=== PATIENT | female | born 1940 | race Hispanic/Latino ===

== ENCOUNTER 2018-10-06 09:47 | Inpatient (IN) | payer OTHER ==
--- OUTSIDE RECORDS SUMMARY | 2018-10-06 09:49 | XMS REPORT ---
:1940 Author Organization eClinicalWorks Care Team Providers Name Role Phone Bird, Na Provider Role Unavailable Allergies No Known Allergies Problems Problem Type Condition Code Onset Dates Condition Status Problem Anemia D64.9 Active Problem Diabetes E11.9 Active Problem Benign essential HTN I10 Active Problem Controlled type 2 diabetes mellitus E11.51 Active with diabetic peripheral angiopathy without gangrene, without long-term current use of insulin Problem CKD (chronic kidney disease) stage N18.3 Active 3, GFR 30-59 ml/min Problem Muscle cramps R25.2 Active Problem Essential hypertension I10 Active Problem Hyperlipidemia E78.5 Active Problem 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
--- OUTSIDE RECORDS SUMMARY | 2018-10-06 09:49 | XMS REPORT ---
:1940 Author Organization [employer] Care Team Providers Name Role Phone Bird, Na Provider Role Unavailable Allergies, Adverse Reactions, Alerts Substance Reaction Event Type N.K.D.A. 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 [id number] 1000 MG Orally Active 1 capsule twice a day Ferrous Sulfate [facility] 90638407384 324 (65 Fe) MG Active 1 tablet Orally twice a day Clonidine HCl [facility] 89393671516 0.1 MG Orally Active 1 tablet twice a day at bedtime HydrALAZINE HCl [facility] 66938257922 25 MG Orally Active 1 tablet Three times a with food day Metformin HCl [facility] 09637152780 850 MG Orally Active 1 tablet three times a with meals day Pravastatin ND 90991146837 40 MG Orally Active 1 tablet Sodium Once a day Norvasc [facility] 46820814659 5 MG Orally Active 1 tablet twice a day Coreg [facility] 37919521056 25 MG Orally Active 1 tablet twice a day Lyrica [facility] 12246731367 50 MG Orally Active 1 capsule Twice a day Diovan [facility] 30266306925 320 MG Orally Inactive 1 tablet Once a day Magnesium Oxide [facility] 95155047457 400 MG Orally Active 1 tablet twice a day as needed Results No Known Results Summary Purpose eClinicalWorks Submission
--- OUTSIDE RECORDS SUMMARY | 2018-10-06 09:49 | XMS REPORT ---
:1940 Author Organization e[employer]Works Care Team Providers Name Role Phone Bird, Na Provider Role Unavailable Allergies No Known Allergies Problems Problem Type Condition Code Onset Dates Condition Status Problem Anemia D64.9 Active Problem Diabetes E11.9 Active Problem Benign essential HTN I10 Active Assessment Anemia D64.9 Active Problem Controlled type 2 diabetes mellitus [...] Active with type 2 diabetes mellitus Medications Medication Code Code Instructions Start End Date Status Dosage System Date Ferrous NDC 17508269545 324 (65 Fe) MG Active 1 tablet Sulfate Orally three times a day Results No Known Results Summary Purpose eClinicalWorks Submission
--- OUTSIDE RECORDS SUMMARY | 2018-10-06 09:49 | XMS REPORT ---
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 Medications Medication Code Code Instructions Start End Status Dosage System Date Date Clonidine HCl [facility] 40402194372 0.1 MG Orally Active 1 tablet twice a day at bedtime HydrALAZINE HCl [facility] 68150392572 25 MG Orally Active 1 tablet Three times a with food day [place] 3 ND 30967935899 1000 MG Orally Active 1 capsule twice a day Pravastatin ND 65790459041 40 MG Orally Active 1 tablet Sodium Once a day [place] ND 10102401040 320 MG Orally Inactive 1 tablet Once a day [place] ND 81462833892 50 MG Orally Active 1 capsule Twice a day Metformin HCl ND 58514024552 850 MG Orally Active 1 tablet three times a with meals day Coreg [facility] 04118456644 25 MG Orally Active 1 tablet twice a day Magnesium Oxide [facility] 99898398679 400 MG Orally Dec 01, Active 1 tablet twice a day 2018 as needed Norvasc [facility] 86430959343 5 MG Orally Active 1 tablet twice a day Ferrous Sulfate [facility] 79420880291 324 (65 Fe) MG Inactive 1 tablet Orally twice a day Results No Known Results Summary Purpose eClinicalWorks Submission
--- NOTE | 2018-10-06 11:23 | RAD REPORT ---
EXAM DESCRIPTION: CT - Head Brain Wo Cont - 10/06/2018 11:12 am CLINICAL HISTORY: Weakness, dizziness, syncope COMPARISON: None. TECHNIQUE: Axial 5 mm thick images of the head were obtained without IV contrast. All CT scans are performed using dose optimization technique as appropriate and may include automated exposure control or mA/KV adjustment according to patient size. FINDINGS: No intracranial hemorrhage, mass, edema or shift of mid-line structures. No acute infarcti on changes seen. No cortical edema or sulcal effacement. Patient has a mild to moderate underlying at rophy and chronic ischemic pattern. Ventricles are in proportion to volume loss. Mastoid air cells are clear. Mucosal thickening present in the right maxillary sinus without air-flui d level. No acute bony findings. IMPRESSION: Mild to moderate atrophy and chronic ischemic change with no acute intracranial finding. Chronic ischemic changes can mask nonhemorrhagic acute infarction. MR brain followup can be obtained if there is ongoing concern for acute ischemia. Right maxillary sinus mucosal thickening without air-fluid level.
[2018-10-06 11:44] LABS: Absolute Lymphocytes (CBC) 1.4 K/uL (0.7-4.9); Absolute Monocytes 0.4 K/uL (0.1-1.3); Absolute Neutrophil 5.2 K/uL (1.8-8.0); Basophils % 0.2 % (0-1.3); Eosinophils % 1.4 % (0-4.4); Hematocrit 35.9 % (36.0-45.0); Lymphocytes % 19.6 % (15.3-44.8); MPV 8.4 fL (7.6-11.3); Monocytes % 5.8 % (3.3-12.3); RBC Red Blood Cell Count 4.15 M/uL (3.86-4.86)
--- NOTE | 2018-10-06 11:51 | RAD REPORT ---
EXAM DESCRIPTION: RAD - Chest Single View - 10/06/2018 11:08 am CLINICAL HISTORY: Abdominal distention, cough COMPARISON: November 2007 TECHNIQUE: AP portable chest image was obtained 1059 hours . FINDINGS: Lungs are clear. Heart and vasculature are normal. No measurable pleural effusion and no p neumothorax. No acute bony abnormality seen. No acute aortic findings suspected. IMPRESSION: No acute cardiopulmonary process. No suspicious exchange administrator the long interval since 2007.
[2018-10-06] MEDS ORDERED: NA CHLORIDE 0.9% 500 ML ONE (11:54)
[2018-10-06] MEDS ORDERED: NA CHLORIDE 0.9% 1,000 ML ONE (11:54)
[2018-10-06] MEDS ORDERED: ONDANSETRON 4 MG/2 ML VIAL ONE (11:54)
[2018-10-06] MEDS ORDERED: CEFTRIAXONE/SWI 1gm 1 GM/10 ML SYR ONE (12:15)
[2018-10-06 12:19] LABS: ALT/SGPT 14 U/L (12-78); AST/SGOT 13 U/L (15-37); Albumin 3.2 g/dL (3.4-5.0); Alkaline Phosphatase 55 U/L (45-117); BUN Blood Urea Nitrogen 39 mg/dL (7-18); Bicarbonate 23 mmol/L (21-32); Bilirubin Direct < 0.1 mg/dL (0-0.2); Bilirubin Total 0.3 mg/dL (0.2-1.0); Glucose Level 129 mg/dL (74-106); Lipase 159 U/L (73-393); Magnesium 1.6 mg/dL (1.8-2.4); NT PRO-BNP 346 pg/mL (<450); Potassium 4.4 mmol/L (3.5-5.1); Protein, Total 7.5 g/dL (6.4-8.2); Sodium Level 141 mmol/L (136-145); Troponin (Emerg Dept Use Only) < 0.02 ng/mL (0.0-0.045)
[2018-10-06 12:21] LABS: Protime INR 0.88
--- NOTE | 2018-10-06 12:41 | RAD REPORT ---
EXAM DESCRIPTION: US - CP - 10/06/2018 12:04 pm CLINICAL HISTORY: Dizziness, syncope COMPARISON: None. TECHNIQUE: Real-time sonographic evaluation of both carotid systems was performed. Mattson scale and Do ppler interrogation were performed with waveform tracing bilaterally. FINDINGS: Normal high resistance waveforms are noted in both external carotid arteries. The common c arotid arteries and internal carotid arteries show normal low resistance waveforms. Bilateral common carotid intimal thickening changes are present. Plaquing changes are identified in t he bulb and ICA on the right. ICAs are tortuous making it difficult to obtain accurate waveforms and velocity values. The left-sided peak systolic and end-diastolic velocity values fall within normal ra nge with a normal 0.9 ICA/ CCA ratio on the left. Right mid ICA value reaches as high as 145 cm/secon d compared to a 64 cm/second common carotid velocity. This yields a 2.3 ICA/ CCA ratio on the right. Antegrade flow seen in both vertebral arteries. Velocity values and ratios were recorded and are retained in the patient's imaging records. IMPRESSION: Plaquing changes in tortuosity of the right-sided carotid vasculature results and elevat ed ICA velocity and abnormally elevated ICA/ CCA ratio. 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 Stenosis based on the ICA/ CCA ratio alone i s felt to exaggerates severity of stenosis. Follow-up MRA or CTA imaging may be helpful. No significant stenosis on the left. No evidence of a hemodynamically significant stenosis.
--- NOTE | 2018-10-06 12:47 | ER ---
Nurse's Notes [facility] Name: Teresa Baez Age: 78 yrs Sex: Female : 1940 Arrival Date: 10/06/2018 Time: 09:51 Bed 16 Private MD: Emily Bird Diagnosis: Unspecified kidney failure;Volume depletion;Anorexia;Acute sinusitis;Hypomagnesemia;Dizziness and giddiness Presentation: 10/06 09:54 Presenting complaint: Patient states: "I haven't had an appetite for about 2 years but aa5 over the last 2 weeks I've been really weak, dizzy, and shaky". Pt denies pain. Pt reports nausea, denies vomiting. Transition of care: patient was not received from another setting of care. Onset of symptoms was September 2018. Risk Assessment: Do you want to hurt yourself or someone else? Patient reports no desire to harm self or others. Initial Sepsis Screen: Does the patient meet any 2 criteria? No. Patient's initial sepsis screen is negative. Does the patient have a suspected source of infection? No. Patient's initial sepsis screen is negative. Care prior to arrival: None. 09:54 Method Of Arrival: Ambulatory aa5 09:54 Acuity: JOSELIN 3 aa5 Triage Assessment: 10:04 General: Appears in no apparent distress. comfortable, Behavior is cooperative, bp appropriate for age, anxious. Pain: Denies pain. Historical: - Allergies: 09:56 No Known Allergies; aa5 - PMHx: 09:56 Diabetes - NIDDM; Hypertension; aa5 - PSHx: 09:56 Cholecystectomy; aa5 - Immunization history:: Pneumococcal vaccine status is unknown, Flu vaccine is not up to date. - Social history:: Smoking status: Patient/guardian denies using tobacco. - Ebola Screening: : No symptoms or risks identified at this time. - Family history:: not pertinent. Screenin:05 Abuse screen: Denies threats or abuse. Denies injuries from another. Nutritional bp screening: No deficits noted. Tuberculosis screening: No symptoms or risk factors identified. Fall Risk None identified. Assessment: 10:06 General: Appears in no apparent distress. comfortable, Behavior is cooperative, bp appropriate for age, anxious. Pain: Denies pain. Neuro: Level of Consciousness is awake, alert, obeys commands, Oriented to person, place, time, situation, Appropriate for age Reports dizziness. Cardiovascular: No deficits noted. Respiratory: Airway is patent Respiratory effort is even, unlabored, Respiratory pattern is regular, symmetrical. GI: Reports intolerance of food. : No signs and/or symptoms were reported regarding the genitourinary system. EENT: No deficits noted. Derm: No deficits noted. Musculoskeletal: Circulation, motion, and sensation intact. Range of motion: intact in all extremities. 12:00 Reassessment: U/S AT B/S. bp 14:00 Reassessment: ADMIT IN PROCESS, ALL CURRENT ORDERS COMPLETED. bp Vital Signs: 09:56 BP 137 / 59; Pulse 52; Resp 16 S; Temp 97.9(O); Pulse Ox 95% on R/A; Pain 0/10; aa5 12:00 BP 130 / 88; Pulse 75; Resp 14; Pulse Ox 100% ; bp 14:00 BP 178 / 69; Pulse 55; Resp 14; Pulse Ox 100% ; bp 16:00 BP 168 / 67; Pulse 57; Resp 14; Pulse Ox 100% ; bp ED Course: 09:51 Patient arrived in ED. mr 09:51 Emily Bird MD is Private Physician. mr 09:54 Arm band placed on. aa5 09:55 Triage completed. aa5 10:04 Ronen Hackett, MOHINI is Primary Nurse. bp 10:05 Patient has correct armband on for positive identification. Bed in low position. Call bp light in reach. Side rails up X2. Adult w/ patient. 10:13 Gerardo Renner MD is Attending Physician. quinton 10:53 EKG done, by vacuum technician. reviewed by Gerardo Renner MD. at1 10:55 Inserted saline lock: 22 gauge in left antecubital area, using aseptic technique. Blood bp collected. 11:06 X-ray completed. Portable x-ray completed in exam room. Patient tolerated procedure jb2 well. 11:08 XRAY Chest (1 view) In Process Unspecified. EDMS 11:12 CT Head Brain wo Cont In Process Unspecified. EDMS 11:49 US Carotid Artery Bilateral In Process Unspecified. EDMS 12:44 eVronica Tomlin MD is Hospitalizing Provider. quinton 16:14 No provider procedures requiring assistance completed. Patient admitted, IV remains in bp place. Administered Medications: 10:45 Drug: NS 0.9% 500 ml Route: IV; Rate: bolus; Site: left antecubital; bp 11:45 Follow up: IV Status: Completed infusion; IV Intake: 500ml bp 10:45 Drug: NS 0.9% 1000 ml Route: IV; Rate: 125 ml/hr; Site: left antecubital; bp 16:09 Follow up: IV Status: Infusion continued upon admission; IV Intake: 500ml bp 11:53 Drug: Zofran 4 mg Route: IVP; Site: left antecubital; bp 12:09 Follow up: Response: Nausea is decreased bp 11:53 CANCELLED (Duplicate Order): Zofran 4 mg IVP once; over 2 minutes bp 12:00 Drug: Rocephin - (cefTRIAXone) 1 grams Route: IVPB; Infused Over: 30 mins; Site: left bp antecubital; 13:00 Follow up: IV Status: Completed infusion; IV Intake: 100ml bp 13:00 Drug: Magnesium Sulfate 1 grams Route: IVPB; Infused Over: 1 hrs; Site: left bp antecubital; 14:00 Follow up: IV Status: Completed infusion; IV Intake: 100ml bp Point of Care Testing: Blood Glucose: 10:00 Blood Glucose: 134 mg/dL; aa5 Ranges: Intake: 11:45 IV: 500ml; Total: 500ml. bp 13:00 IV: 100ml; Total: 600ml. bp 14:00 IV: 100ml; Total: 700ml. bp 16:09 IV: 500ml; Total: 1200ml. bp Outcome: 12:46 Decision to Hospitalize by Provider. quinton 16:13 Admitted to Tele accompanied by tech, family with patient, via wheelchair, room 425, bp with chart, Report called to KRISTEN RAJAN 16:13 Condition: stable 16:13 Instructed on the need for admit. 16:26 Patient left the ED. bp Signatures: Dispatcher [employer] EDGerardo Carmichael MD MD cha Rivera, Dannielle Alvarez, Hallie Garcia, RN RN aa5 Jenelle Bauer, wood turner EKG Tat1 Ronen Hackett, RN RN bp
--- NOTE | 2018-10-06 12:48 | EDPHYS ---
Physician Documentation [facility] Name: Teresa Baez Age: 78 yrs Sex: Female : 1940 Arrival Date: 10/06/2018 Time: 09:51 Bed 16 Private MD: Emily Bird ED Physician Gerardo Renner HPI: 10/06 10:38 This 78 yrs old Female presents to ER via Ambulatory with complaints of quinton Dizziness, Decreased Appetite. 10:38 The patient presents with dizziness, lightheadedness, vertigo. Onset: The quinton symptoms/episode began/occurred 3 day(s) ago. Context: occurred at an unknown location. Modifying factors: The symptoms are alleviated by holding head still, the symptoms are aggravated by nothing, not eating. Associated signs and symptoms: The patient has no apparent associated signs or symptoms. Severity of symptoms: At their worst the symptoms were mild in the emergency department the symptoms are unchanged. Patient's baseline: Neuro: alert and fully oriented. The patient has experienced similar episodes in the past, a few times. Historical: - Allergies: 09:56 No Known Allergies; aa5 - PMHx: 09:56 Diabetes - NIDDM; Hypertension; aa5 - PSHx: 09:56 Cholecystectomy; aa5 - Immunization history:: Pneumococcal vaccine status is unknown, Flu vaccine is not up to date. - Social history:: Smoking status: Patient/guardian denies using tobacco. - Ebola Screening: : No symptoms or risks identified at this time. - Family history:: not pertinent. ROS: 10:38 Constitutional: Negative for fever, chills, and weight loss, Eyes: Negative for injury, quinton pain, redness, and discharge, ENT: Negative for injury, pain, and discharge, Neck: Negative for injury, pain, and swelling, Cardiovascular: Negative for chest pain, palpitations, and edema, Respiratory: Negative for shortness of breath, cough, wheezing, and pleuritic chest pain, Back: Negative for injury and pain, : Negative for injury, bleeding, discharge, and swelling, MS/Extremity: Negative for injury and deformity, Skin: Negative for injury, rash, and discoloration, Psych: Negative for depression, anxiety, suicide ideation, homicidal ideation, and hallucinations, Allergy/Immunology: Negative for hives, rash, and allergies, Endocrine: Negative for neck swelling, polydipsia, polyuria, polyphagia, and marked weight changes, Hematologic/Lymphatic: Negative for swollen nodes, abnormal bleeding, and unusual bruising. 10:38 Abdomen/GI: Positive for nausea, anorexia, Negative for abdominal pain. Exam: 10:38 Constitutional: This is a well developed, well nourished patient who is awake, alert, quinton and in no acute distress. Head/Face: Normocephalic, atraumatic. Eyes: Pupils equal round and reactive to light, extra-ocular motions intact. Lids and lashes normal. Conjunctiva and sclera are non-icteric and not injected. Cornea within normal limits. Periorbital areas with no swelling, redness, or edema. ENT: Nares patent. No nasal discharge, no septal abnormalities noted. Tympanic membranes are normal and external auditory canals are clear. Oropharynx with no redness, swelling, or masses, exudates, or evidence of obstruction, uvula midline. Mucous membranes moist. Neck: Trachea midline, no thyromegaly or masses palpated, and no cervical lymphadenopathy. Supple, full range of motion without nuchal rigidity, or vertebral point tenderness. No Meningismus. Chest/axilla: Normal chest wall appearance and motion. Nontender with no deformity. No lesions are appreciated. Cardiovascular: Regular rate and rhythm with a normal S1 and S2. No gallops, murmurs, or rubs. Normal PMI, no JVD. No pulse deficits. Respiratory: Lungs have equal breath sounds bilaterally, clear to auscultation and percussion. No rales, rhonchi or wheezes noted. No increased work of breathing, no retractions or nasal flaring. Back: No spinal tenderness. No costovertebral tenderness. Full range of motion. Skin: Warm, dry with normal turgor. Normal color with no rashes, no lesions, and no evidence of cellulitis. MS/ Extremity: Pulses equal, no cyanosis. Neurovascular intact. Full, normal range of motion. Neuro: Awake and alert, GCS 15, oriented to person, place, time, and situation. Cranial nerves II-XII grossly intact. Motor strength 5/5 in all extremities. Sensory grossly intact. Cerebellar exam normal. Normal gait. Psych: Awake, alert, with orientation to person, place and time. Behavior, mood, and affect are within normal limits. 10:38 Abdomen/GI: Inspection: abdomen appears normal, Bowel sounds: normal, Palpation: abdomen is soft and non-tender, Liver: no appreciated palpable abnormalities, Hernia: not appreciated. 10:42 Cardiovascular: Rate: normal, Rhythm: regular, Pulses: Pulses are 4+ in bilateral quinton radial, brachial, femoral, popliteal, posterior tibial and and dorsalis pedis arteries.. Heart sounds: normal, Edema: is not appreciated, JVD: is not appreciated. Vital Signs: 09:56 BP 137 / 59; Pulse 52; Resp 16 S; Temp 97.9(O); Pulse Ox 95% on R/A; Pain 0/10; aa5 12:00 BP 130 / 88; Pulse 75; Resp 14; Pulse Ox 100% ; bp 14:00 BP 178 / 69; Pulse 55; Resp 14; Pulse Ox 100% ; bp 16:00 BP 168 / 67; Pulse 57; Resp 14; Pulse Ox 100% ; bp MDM: 10:13 Patient medically screened. [facility] 10:41 Data reviewed: vital signs, nurses notes, lab test result(s), EKG, radiologic studies, [facility] CT scan, doppler, plain films. 10/06 10:37 Order name: Basic Metabolic Panel [facility] 10/06 10:37 Order name: CBC with Diff; Complete Time: 12:40 [facility] 10/06 10:37 Order name: LFT's [facility] 10/06 10:37 Order name: Magnesium [facility] 10/06 10:37 Order name: NT PRO-BNP [facility] 10/06 10:37 Order name: PT-INR; Complete Time: 12:40 [facility] 10/06 10:37 Order name: Troponin (emerg Dept Use Only) [facility] 10/06 10:37 Order name: XRAY Chest (1 view); Complete Time: 12:40 [facility] 10/06 10:37 Order name: CT Head Brain wo Cont; Complete Time: 11:29 [facility] 10/06 10:37 Order name: Lipase [facility] 10/06 10:37 Order name: Urine Culture [facility] 10/06 10:37 Order name: US Carotid Artery Bilateral [facility] 10/06 10:37 Order name: EKG; Complete Time: 10:39 [facility] 10/06 10:37 Order name: Cardiac monitoring; Complete Time: 11:54 [facility] 10/06 10:37 Order name: EKG - Nurse/Tech; Complete Time: 11:54 [facility] 10/06 10:37 Order name: IV Saline Lock; Complete Time: 11:55 [facility] 10/06 10:37 Order name: Labs collected and sent; Complete Time: 11:55 [facility] 10/06 10:37 Order name: O2 Per Protocol; Complete Time: 11:54 [facility] 10/06 10:37 Order name: O2 Sat Monitoring; Complete Time: 11:54 [facility] 10/06 10:37 Order name: Urine Dipstick-Ancillary (obtain specimen); Complete Time: 16:10 [facility] 10/06 10:37 Order name: PO challenge; Complete Time: 14:15 [facility] Administered Medications: 10:45 Drug: NS 0.9% 500 ml Route: IV; Rate: bolus; Site: left antecubital; bp 11:45 Follow up: IV Status: Completed infusion; IV Intake: 500ml bp 10:45 Drug: NS 0.9% 1000 ml Route: IV; Rate: 125 ml/hr; Site: left antecubital; bp 16:09 Follow up: IV Status: Infusion continued upon admission; IV Intake: 500ml bp 11:53 Drug: Zofran 4 mg Route: IVP; Site: left antecubital; bp 12:09 Follow up: Response: Nausea is decreased bp 11:53 CANCELLED (Duplicate Order): Zofran 4 mg IVP once; over 2 minutes bp 12:00 Drug: Rocephin - (cefTRIAXone) 1 grams Route: IVPB; Infused Over: 30 mins; Site: left bp antecubital; 13:00 Follow up: IV Status: Completed infusion; IV Intake: 100ml bp 13:00 Drug: Magnesium Sulfate 1 grams Route: IVPB; Infused Over: 1 hrs; Site: left bp antecubital; 14:00 Follow up: IV Status: Completed infusion; IV Intake: 100ml bp Point of Care Testing: Blood Glucose: 10:00 Blood Glucose: 134 mg/dL; aa5 Ranges: Critical Glucose Levels:Adult <50 mg/dl or >400 mg/dl <40 mg/dl or >180 mg/dl Disposition: 10/06/18 12:46 Hospitalization ordered by Veronica Tomlin for Observation. Preliminary diagnosis are Unspecified kidney failure, Volume depletion, Anorexia, Acute sinusitis, Hypomagnesemia, Dizziness and giddiness. - Bed requested for Telemetry/MedSurg (observation). - Status is Observation. bp - Condition is Fair. - Problem is new. - Symptoms have improved. UTI on Admission? No Signatures: Dispatcher [employer] EDMS Jaz Eugene Gerardo Rojas MD MD cha Calderon, Audri, RN RN aa5 Ronen Hackett RN RN bp Corrections: (The following items were deleted from the chart) 11:53 11:52 Zofran 4 mg IVP once; over 2 minutes ordered. bp bp 15:56 12:46 Hospitalization Ordered by Veronica Tomlin MD for Observation. Preliminary diagnosis bd is Unspecified kidney failure; Volume depletion; Anorexia; Acute sinusitis; Hypomagnesemia; Dizziness and giddiness. Bed requested for Telemetry/MedSurg (observation). Status is Observation. Condition is Fair. Problem is new. Symptoms have improved. UTI on Admission? No. quinton 16:26 15:56 10/06/2018 12:46 Hospitalization Ordered by Veronica Tomlin MD for Observation. bp Preliminary diagnosis is Unspecified kidney failure; Volume depletion; Anorexia; Acute sinusitis; Hypomagnesemia; Dizziness and giddiness. Bed requested for Telemetry/MedSurg (observation). Status is Observation. Condition is Fair. Problem is new. Symptoms have improved. UTI on Admission? No. bd
[2018-10-06] MEDS ORDERED: MAGNESIUM SULFATE 1 gm IVPB 1 GM/100 ML BAG IV ONE (14:08)
--- NOTE | 2018-10-06 15:31 | EKG ---
Test Date: 2018-10-06 Test Time: 10:44:09 Track Oiler: VANNA MEASUREMENT RESULTS: Intervals: Rate: 54 ND: 178 QRSD: 88 QT: 478 QTc: 453 [place]: P: 65 ND: 178 QRS: 41 T: 77 INTERPRETIVE STATEMENTS: Sinus bradycardia Nonspecific T wave abnormality Abnormal ECG Compared to ECG 12/12/2007 07:07:36 Sinus rhythm no longer present T-wave abnormality still present Electronically Signed On 10-06-18 15:31:26 WORK CHECKER by Brent Manley
[2018-10-06] MEDS ORDERED: ONDANSETRON 4 MG/2 ML VIAL IV PRN (16:31)
[2018-10-06] MEDS ORDERED: ACETAMINOPHEN 500 MG TAB PO PRN (16:31)
[2018-10-06] MEDS ORDERED: GLUCAGON 1 MG/VIAL IM PRN (16:57)
[2018-10-06] MEDS ORDERED: D50W 25 GM/50 ML SYRINGE IV PRN (16:57)
[2018-10-06] MEDS: HYDRALAZINE HCL 25 MG TABLET PO SCH (18:15)
[2018-10-06] MEDS: ENOXAPARIN 30 MG/0.3 ML SQ SCH (18:15)
[2018-10-06] MEDS: NA CHLORIDE 0.9% 1,000 ML IV SCH (18:15)
[2018-10-06 18:40] LABS: Urine Appearance CLEAR; Urine Bilirubin NEGATIVE (NEG); Urine Blood NEGATIVE (NEG); Urine Color YELLOW; Urine Glucose NEGATIVE (NEG); Urine Protein NEGATIVE (NEG); Urine Urobilinogen 0.2 mg/dL (0.2-1.0)
[2018-10-06 19:59] VITALS: BMI 25.0
[2018-10-06 20:47] LABS: Urine Bacteria 20-50 /HPF (<20); Urine Culture Reflex Order REFLEXED; Urine RBC <5 /HPF (NONE SEEN)
[2018-10-06] MEDS: cloNIDine HCl 0.1 MG TAB PO SCH (20:54)
[2018-10-06] MEDS: AMLODIPINE 5 MG TAB PO SCH (20:54)
[2018-10-06] MEDS: INSULIN -REGULAR HUMAN 50 UNIT/0.5 ML ML SQ SCH (20:55)
[2018-10-06] MEDS ORDERED: ATORVASTATIN 10 MG TAB PO SCH (21:00)
--- NOTE | 2018-10-07 04:37 | HP ---
Date of Admission: 10/06/2018 Code Status: Full. Primary Care Physician: Dr. Bird. Chief Complaint: Generalized weakness, no appetite. History Of Present Illness: The patient is an 78-year-old female with past medical history of hypertension, hyperlipidemia, diabetes, and chronic diarrhea , who was in her usual state of health until 4 days prior to admission when the patient had gradual onset of generalized weakness, worsening diarrhea, no appetite, has not been able to tolerate p.o. intake, nausea, but no vomiting. The patient denies any recent antibiotic use. She does see a kidney doctor on regular basis. The patient also reports dizziness with the room spinning about her. No alleviating or aggravating factors. The patient's symptoms are constant, moderate, progressively worsening. The patient was, therefore, referred to the ER by family members. Upon arrival, her vital signs were stable , she was bradycardic. She was worked up and was found to have normal WBC count. Her magnesium was low. Creatinine was elevated above her baseline of about 1.5. The patient's imaging studies including CT scan of the head was negative. This shows the right maxillary sinus mucosal thickening without air fluid level. Her chest x-ray was also clear. However, her carotid artery ultrasound showed some 50% stenosis in the right ICA. The patient is referred for admission. When seen in the ER, she was awake, alert, oriented x3, she has some mild distress. Past Medical History: Hypertension, hyperlipidemia, diabetes mellitus type 2, chronic kidney disease. CVA with no residual deficits. Surgical History: Hysterectomy, cholecystectomy, cataract surgery. Allergies: NO KNOWN DRUG ALLERGIES. Medications: List reviewed. Social History: The patient has good social support. Does not use any assistive ambulatory devices, independent in her activities of daily living. Denies any alcohol use or tobacco use. Family History: Diabetes and hypertension run in the family. Review of Systems: An 11-point system reviewed, negative except as per HPI. Physical Examination: Vital Signs: Temperature 97.9, heart rate 52, blood pressure 137/59, respirations 16, O2 95% on room air. General: Awake, alert, oriented x3, and mild distress. HEENT: Normocephalic, atraumatic. PERRLA. EOMI. Dry mucous membranes. Oropharynx is clear. Conjunctivae anicteric. Neck: Supple. No JVD. Trachea midline. CV: S1 and S2. Sinus bradycardia. Peripheral pulses present. Respiratory: Moving air well bilaterally. No wheezing or stridor. No use of accessory muscles. Gastrointestinal: Abdomen is soft. Mild tenderness to palpation in the epigastric region. No rebound or guarding. Bowel sounds positive. Extremities: No clubbing, cyanosis, or edema. No calf tenderness. Neuro: Cranial nerves 2 through 12 intact grossly. No focal neurological deficit. Speech is normal. Strength is 5/5 bilateral upper and lower extremities. Skin: No rashes. Normal skin turgor. Psych: Mood is okay. Affect is flat. Insight and judgment are good. Laboratory Data: Sodium 141, potassium 4.4, chloride 108, CO2 23, BUN 39, creatinine 2, glucose 129, calcium 8.7, magnesium 1.6, total bilirubin 0.3. Troponin less than 0.02. Albumin 3.2, lipase 159. WBC 7.1, platelets 210, neutrophils 73%. INR 0.88. Imaging Studies: Ultrasound of the carotid artery shows plaquing changes and tortuosity of the right carotid vasculature result and elevated ICA velocity abnormality, abnormally elevated ICA/CCA ratio, greater than 50% stenosis suspected with significant stenosis on the left. No evidence of hemodynamically significant stenosis. Chest x-ray, personally reviewed, shows no acute cardiopulmonary process. CT of the head shows [id number] atrophy and chronic ischemic change with no acute intracranial finding, right maxillary sinus mucosal thickening without air-fluid level. Assessment And Plan: An 78-year-old female with: 1. Generalized weakness. 2. Dizziness. 3. Essential hypertension. 4. Diabetes mellitus type 2 non-insulin requiring with hyperglycemia. 5. Hypomagnesemia. 6. Pevxi-tz-xmuznir kidney injury stage 3. 7. History of cerebrovascular accident without residual deficit. 8. Gastrointestinal and deep venous thrombosis prophylaxis addressed. 9. Chronic diarrhea. The patient does have some acute diarrhea symptoms. We will obtain stool studies. Plan: Admit the patient to Med-Surg, place as inpatient. We will start on sliding scale insulin. IV fluids for IV hydration. Consult the patient's metallurgy teacher. GI and DVT prophylaxis with PPI and Lovenox renally dosed. Resume home medications as appropriate. Avoid NSAIDs and nephrotoxins. We will obtain stool studies. Monitor creatinine. Obtain UA. SA/MODL Voice ID: [id number] MTDD
[2018-10-07] MEDS: NA CHLORIDE 0.9% 1,000 ML IV SCH (05:23)
[2018-10-07 05:28] LABS: Absolute Lymphocytes (CBC) 1.9 K/uL (0.7-4.9); Absolute Monocytes 0.5 K/uL (0.1-1.3); Absolute Neutrophil 3.7 K/uL (1.8-8.0); Basophils % 0.4 % (0-1.3); Eosinophils % 1.9 % (0-4.4); Hematocrit 32.5 % (36.0-45.0); Lymphocytes % 30.4 % (15.3-44.8); MPV 7.9 fL (7.6-11.3); Monocytes % 8.3 % (3.3-12.3); RBC Red Blood Cell Count 3.78 M/uL (3.86-4.86)
[2018-10-07 05:42] LABS: Albumin 2.9 g/dL (3.4-5.0); Bilirubin Total 0.2 mg/dL (0.2-1.0); Protein, Total 6.6 g/dL (6.4-8.2)
[2018-10-07] MEDS: INSULIN -REGULAR HUMAN 50 UNIT/0.5 ML ML SQ SCH ×3 (07:30→16:22)
[2018-10-07] MEDS ORDERED: PNEUMOCOCCAL VACCINE 0.5 ML IMVAC ONE (08:00)
[2018-10-07] MEDS ORDERED: INFLUENZA VACCINE (for 3y+) 0.5 ML DOSE IMVAC ONE (08:00)
[2018-10-07 08:47] VITALS: O2SAT 94
[2018-10-07] MEDS ORDERED: HOME MED 1 EA UNK (Pravastatin [Pravachol*] 40 MG) PO SCH (09:00)
[2018-10-07] MEDS: cloNIDine HCl 0.1 MG TAB PO SCH (09:58)
[2018-10-07] MEDS: AMLODIPINE 5 MG TAB PO SCH (09:59)
[2018-10-07] MEDS: HYDRALAZINE HCL 25 MG TABLET PO SCH ×3 (09:59→16:49)
[2018-10-07] MEDS ORDERED: BENZONATATE 100 MG CAP PO PRN (13:05)
[2018-10-07] MEDS ORDERED: NA CHLORIDE 0.9% 1,000 ML IV SCH (14:00)
--- NOTE | 2018-10-07 14:55 | RAD REPORT ---
EXAM DESCRIPTION: US - Renal Ultrasound-Complete - 10/07/2018 2:34 pm CLINICAL HISTORY: Acute kidney injury superimposed on chronic renal failure COMPARISON: None. FINDINGS: The right kidney measures 9.7 x 4.6 x 4.1 cm. The left kidney measures 9.4 x 4.3 x 4.3 cm . Cortical thickness is normal. There is increased cortical echogenicity consistent with underlying m edical renal disease. No hydronephrosis or suspicious renal mass. No suspicious calcifications. Bladder was mostly contracted limiting assessment. No free fluid in the pelvis. IMPRESSION: Medical renal disease is present in each kidney. No hydronephrosis or suspicious mass. No other significant findings.
--- NOTE | 2018-10-07 15:28 | P.CNS ---
Date of Consult: 10/07/18 Reason for Consult: EPIFANIO Chief Complaint: diarrhea , weakness History of Present Illness: An 78-year-old woman with past medical history of hypertension, hyperlipidemia, diabetes for more than 10 yrs with retinopathy and neuropathy , chronic diarrhea , and CKD pt presented for progressive weakness, and poor oral intake for 2wks duration pt stated she had chronic daily with 4-5BM daily last few days she lost food taste and appetite and decide to come to the hospital no nausea , vonitmiting, cheat pain or palpitation denied NSAID or herbal meds intake Allergies No Known Allergies Allergy (Verified 07/29/15 11:20) Home Medications: Carvedilol [Coreg] 25 mg PO BID 07/29/15 Metformin HCl [Glucophage] 850 mg PO TIDWM 07/29/15 Pravastatin [Pravachol] 40 mg PO DAILY 07/29/15 Amlodipine [Norvasc] 5 mg PO BID 10/06/18 Clonidine HCl [Catapres] 0.1 mg PO BID 10/06/18 Hydralazine [Apresoline] 25 mg PO TIDWM 10/06/18 [place]-3 Acid Ethyl Esters 1 cap PO BID 10/06/18 Benzonatate [Tessalon Perle*] 100 mg PO TID PRN #15 cap 10/07/18 - Past Medical/Surgical History Diabetic: Yes -: Hypertension -: NIDDM -: cholecystectomy -: hysterectoymy - Family History Father History Unknown: Yes Medical History: Heart disease Notes: with AL - Social History Alcohol use: No CD- Drugs: No Caffeine use: No Place of Residence: Home Physical Examination Temp Pulse Resp BP Pulse Ox 97.8 F 59 16 173/74 H 94 10/07/18 12:00 10/07/18 12:00 10/07/18 12:00 10/07/18 12:00 10/07/18 12:00 General: In no apparent distress, Oriented x3 HEENT: Atraumatic Neck: Supple, Without JVD or thyroid abnormality Respiratory: Clear to auscultation bilaterally, Normal air movement Cardiovascular: No edema, Regular rate/rhythm, Normal S1 S2 Gastrointestinal: Normal bowel sounds Laboratory Data (last 24 hrs) 10/06/18 11:24: Sodium 141, Potassium 4.4, BUN 39 H, Creatinine 2.00 H, Glucose 129 H, Phosphorus 3.7, Magnesium 1.6 L, Total Bilirubin 0.3, AST 13 L, ALT 14, Alkaline Phosphatase 55, Lipase 159 - Problems (1) EPIFANIO (acute kidney injury) Current Visit: Yes Status: Acute (2) Diabetes Current Visit: Yes Status: Chronic Conclusions/Impression: EPIFANIO on CKD likely due to diarrhea and prerenal azotemia cr 2.0 and improved to 1.4 Cr baseline ~1.5 US no hydro CKD 2/2 DM reduce IVF to 50ml/hr Hold metformin will check UPC DM as per primary hold metformine hypomagnesemia will recheck Will check Mg level Chronic diarrhea F/U C.diff Cont IVF for now Pyuria F/U culture results no urinary symptoms
[2018-10-07 15:43] LABS: Magnesium 1.7 mg/dL (1.8-2.4); Phosphorus 2.9 mg/dL (2.5-4.9)
[2018-10-07 16:49] VITALS: BP 160/74; TEMP 98.6
[2018-10-07] MEDS: ENOXAPARIN 30 MG/0.3 ML SQ SCH (16:50)
[2018-10-07] MEDS ORDERED: GLUCERNA SHAKE 237 ML CAN PO SCH (17:00)
--- NOTE | 2018-10-07 17:16 | P.DS ---
Admission Date: 10/06/18 Discharge Date: 10/07/18 Disposition: ROUTINE DISCHARGE Discharge Condition: GOOD Reason for Admission: diarrhea , weakness Consultations: Nephrology Procedures: CT - Head Brain Wo Cont - 10/06/2018 11:12 am CLINICAL HISTORY: Weakness, dizziness, syncope COMPARISON: None. TECHNIQUE: Axial 5 mm thick images of the head were obtained without IV contrast. All CT scans are performed using dose optimization technique as appropriate and may include automated exposure control or mA/KV adjustment according to patient size. FINDINGS: No intracranial hemorrhage, mass, edema or shift of mid-line structures. No acute infarction changes seen. No cortical edema or sulcal effacement. Patient has a mild to moderate underlying atrophy and chronic ischemic pattern. Ventricles are in proportion to volume loss. Mastoid air cells are clear. Mucosal thickening present in the right maxillary sinus without air-fluid level. No acute bony findings. IMPRESSION: Mild to moderate atrophy and chronic ischemic change with no acute intracranial finding. Chronic ischemic changes can mask nonhemorrhagic acute infarction. MR brain followup can be obtained if there is ongoing concern for acute ischemia. Right maxillary sinus mucosal thickening without air-fluid level. RAD - Chest Single View - 10/06/2018 11:08 am CLINICAL HISTORY: Abdominal distention, cough COMPARISON: November 2007 TECHNIQUE: AP portable chest image was obtained 1059 hours . FINDINGS: Lungs are clear. Heart and vasculature are normal. No measurable pleural effusion and no pneumothorax. No acute bony abnormality seen. No acute aortic findings suspected. IMPRESSION: No acute cardiopulmonary process. 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 Brief History of Present Illness: The patient is an 78-year-old female with past medical history of hypertension, hyperlipidemia, diabetes, and chronic diarrhea, who was in her usual state of health until 4 days prior to admission when the patient had gradual onset of generalized weakness, worsening diarrhea, no appetite, has not been able to tolerate p.o. intake, nausea, but no vomiting. The patient denies any recent antibiotic use. She does see a kidney doctor on regular basis. The patient also reports dizziness with the room spinning about her. No alleviating or aggravating factors. The patient's symptoms are constant, moderate, progressively worsening. The patient was, therefore, referred to the ER by family members. Upon arrival, her vital signs were stable, she was bradycardic. She was worked up and was found to have normal WBC count. Her magnesium was low. Creatinine was elevated above her baseline of about 1.5. The patient's imaging studies including CT scan of the head was negative. This shows the right maxillary sinus mucosal thickening without air fluid level. Her chest x-ray was also clear. However, her carotid artery ultrasound showed some 50% stenosis in the right ICA. The patient is referred for admission. When seen in the ER, she was awake, alert, oriented x3, she has some mild distress. Hospital Course: Patient was admitted to the floor has been inpatient, started on IV fluids and something scale insulin. CT of the head was done, which was negative for any acute abnormalities. She was restarted on her home medications for hypertension. Her regular boom stick man was consulted for her acute on chronic kidney injury, stage III. Per patient she has a history of chronic diarrhea that has been going on for years for which she has not seen a high school music director. Per granddaughter at bedside, patient has not even mentioned this chronic diarrhea to any of her other physicians is as she does not want to see a stomach specialist because she is afraid of getting a colonoscopy done. Her main complaint at the time of KRISTIN of evaluation was unable to eat/like appetite for many years now. Patient states that her dizziness has resolved, though she did review the have much dizziness to begin with. Her main concern was her lack of appetite. Labs herrera, her creatinine improved to 1.4 from 2.0 and her hemoglobin remained stable at 10.8. Stool studies were negative for C. diff, urine culture negative for any growth. As her symptoms of dizziness had resolved, the patient would benefit more from outpatient gastroenterology referral. Information provided for outpatient gastroenterology. Discussed the importance of following up with Gastroenterology so take it to a colonoscopy/EGD for further testing of her anemia, anorexia and diarrhea. Symptoms and diagnosis were explained to patient , all questions answered and patient verbalized understanding. Granddaughter also expressed understanding of the importance of following up with Gastroenterology outpatient. Next Vital Signs/Physical Exam: Temp Pulse Resp BP Pulse Ox 98.6 F 59 16 160/74 H 95 10/07/18 16:00 10/07/18 16:00 10/07/18 16:00 10/07/18 16:00 10/07/18 16:00 General: Alert, In no apparent distress, Oriented x3 HEENT: Atraumatic, PERRLA, EOMI Neck: Supple, JVD not distended Respiratory: Clear to auscultation bilaterally, Normal air movement Cardiovascular: Regular rate/rhythm, Normal S1 S2 Gastrointestinal: Normal bowel sounds, No tenderness Musculoskeletal: No tenderness Integumentary: No rashes Neurological: Normal speech, Normal tone, Normal affect Lymphatics: No axilla or inguinal lymphadenopathy Laboratory Data at Discharge: WBC 6.2 K/uL (4.3-10.9) 10/07/18 05:12 Hgb 10.8 g/dL (12.0-15.0) L 10/07/18 05:12 Hct 32.5 % (36.0-45.0) L 10/07/18 05:12 Plt Count 216 K/uL (152-406) 10/07/18 05:12 PT 10.4 SECONDS (9.5-12.5) 10/06/18 11:24 INR 0.88 10/06/18 11:24 Sodium 143 mmol/L (136-145) 10/07/18 05:12 Potassium 4.0 mmol/L (3.5-5.1) 10/07/18 05:12 BUN 26 mg/dL (7-18) H 10/07/18 05:12 Creatinine 1.40 mg/dL (0.55-1.3) H 10/07/18 05:12 Glucose 93 mg/dL (74-106) 10/07/18 05:12 Phosphorus 2.9 mg/dL (2.5-4.9) 10/07/18 05:12 Magnesium 1.7 mg/dL (1.8-2.4) L 10/07/18 05:12 Total Bilirubin 0.2 mg/dL (0.2-1.0) 10/07/18 05:12 AST 13 U/L (15-37) L 10/07/18 05:12 ALT 10 U/L (12-78) L 10/07/18 05:12 Alkaline Phosphatase 48 U/L (45-117) 10/07/18 05:12 Lipase 159 U/L (73-393) 10/06/18 11:24 Home Medications: Carvedilol [Coreg*] 25 mg PO BID 07/29/15 Metformin HCl [Glucophage*] 850 mg PO TIDWM 07/29/15 Pravastatin [Pravachol*] 40 mg PO DAILY 07/29/15 Amlodipine [Norvasc*] 5 mg PO BID 10/06/18 Clonidine HCl [Catapres] 0.1 mg PO BID 10/06/18 Hydralazine [Apresoline*] 25 mg PO TIDWM 10/06/18 [place]-3 Acid Ethyl Esters 1 cap PO BID 10/06/18 Benzonatate [Tessalon Perle*] 100 mg PO TID PRN #15 cap 10/07/18 New Medications: Benzonatate [Tessalon Perle*] 100 mg PO TID PRN #15 cap PRN Reason: Cough Patient Discharge Instructions: Please follow up with your primary care physician in 1 week. Please follow up with your nephrology in 2-3 weeks. As discussed, it is very important that you follow up with a high school music director ( stomach specialist) to evaluate your low blood count numbers, decreased appetite and chronic diarrhea further. It is important that you discuss possible colonoscopy and esophagoduodenoscopy with the Template Maker. We have provided information for Dr. Lorenzo's office with your discharge paperwork. Diet: Renal Activity: Ad saqib Followup: Asif Lorenzo MD [ASSOCIATE-ACTIVE - CAN ADMIT] - Emily Bird DO [Primary Care Provider] - Physician Review: Patient Assessed, Agree with Above Assessment and Plan Time spent managing pt's care (in minutes): 55
== END 2018-10-07 17:41 | disposition home or self-care (01) | DRG 683 ==
LOC: ER 09:47 → ERHOLD 13:54 → 4TH 16:14
PROVIDERS: ADMIT Family Medicine; ATTEND Family Medicine
DX: N17.9 Acute kidney failure, unspecified (principal); N39.0 Urinary tract infection, site not specified; I12.9 Hypertensive chronic kidney disease with stage 1 through stage 4 chronic kidney disease, or unspecified chronic kidney disease; N18.3 Chronic kidney disease, stage 3 (moderate); E78.5 Hyperlipidemia, unspecified; E11.40 Type 2 diabetes mellitus with diabetic neuropathy, unspecified; E11.319 Type 2 diabetes mellitus with unspecified diabetic retinopathy without macular edema; E11.22 Type 2 diabetes mellitus with diabetic chronic kidney disease; E83.42 Hypomagnesemia; K52.9 Noninfective gastroenteritis and colitis, unspecified; I65.21 Occlusion and stenosis of right carotid artery; Z86.73 Personal history of transient ischemic attack (TIA), and cerebral infarction without residual deficits; E11.65 Type 2 diabetes mellitus with hyperglycemia
CPT/HCPCS: 36415; 70450; 71045; 76770; 80048; 80053; 80076; 81001; 82962; 83690; 83735; 83880; 84100; 84484; 85025; 85610; 87086; 87088; 87493; 93005; 93880; 94760; 96361; 96365; 96367; 96375; 97110; 97163; 99285; J0696; J1650; J2405; J3475; J7030

== ENCOUNTER 2020-12-18 02:58 | Emergency (ER) | payer OTHER ==
--- OUTSIDE RECORDS SUMMARY | 2020-12-18 03:02 | XMS REPORT | Continuity of Care Document ---
:1940 Author Organization [facility] t Address [address] [place] [address] Care Team Providers Name Role Phone Unavailable Unavailable Unavailable Problems This patient has no known problems. Allergies, Adverse Reactions, Alerts This patient has no known allergies or adverse reactions. Medications Ordered Filled Start Stop Current Ordering Indication Dosage Frequency Signature Comments Components Source Medication Medication Date Date Medication? Clinician (SIG) Name Name Yoni Vallejo 2020- No Na Bird [address] [facility] 7[facility]27 11-11 [facility]00 [facility] Mirtazapine Mirtazapine 2017-10 Yes Na Bird [address] [facility] 2-27 at bedtime [facility] 00 [facility] Cefdinir Cefdinir 2017-10 Yes Na Bird [facility] 00 [facility] HydrALAZINE HydrALAZINE Yes Na Bird [address] [facility] HCl HCl with food [facility] Magnesium Magnesium Yes Na Bird [address] [facility] Oxide Oxide as needed [facility] Pravastatin Pravastatin Yes Na Bird [address] [facility] Sodium Sodium [facility] Coreg Coreg Yes Na Bird [address] [facility] Lyrica Lyrica Yes Na Bird [address] [facility] Metformin Metformin Yes Na Bird [address] [facility] HCl HCl with meals [facility] 3 [facility] 3 Yes Na Bird [address] [facility] Clonidine Clonidine Yes Na Bird [address] [facility] HCl HCl at bedtime [facility] Norvasc Norvasc Yes Na Bird [address] [facility] Iron Iron Yes Na Bird [address] [facility] Nexium Nexium Yes Na Bird [address] [facility] Amlodipine Amlodipine Yes Na Bird TAKE [address] [facility] Besylate Besylate TABLET BY Louann kes - MOUTH [facility] TWICE A l DAY [facility] 3 [facility] 3 Yes Na Bird [address] [facility] Omeprazole Omeprazole Yes Na Bird TAKE [address] [facility] CAPSULE BY [facility] EVERY DAY l [facility] Immunizations Ordered Filled Immunization Date Status Comments [facility] Immunization Name Name Mica Nino 2019-09-[address] [facility] Procedures This patient has no known procedures. Encounters Start End Encounter Admission Attending Care Care Encounter Source Date/Time Date/Time Type Type Clinicians Facility Department ID 2020-10-28 2020-10-28 Outpatient [facility] [id number] [facility] 2020-07-29 2020-07-29 Outpatient [facility] [id number] [facility] 2020-07-29 2020-07-29 Outpatient [facility] [id number] [facility] 2020-05-13 2020-05-13 [facility] [id number] [facility] 15:31:00 15:31:00 t Tweet Category [facility] Medicine Medicine Outpati ent Clinics 2020-05-04 2020-05-04 [facility] [id number] [facility] 16:41:00 16:41:00 t Tweet Category [facility] Out[facility] ent Clinics 2020-04-21 2020-04-21 [facility] [id number] [facility] 13:40:00 13:40:00 [place] [employer] [place] [facility] - Drive [facility] Medicine l Medicine Outpati ent Clinics 2020-01-21 2020-01-21 [facility] [id number] [address] 14:00:00 14:00:00 [place] [employer] s - Drive [facility] Medicine l Medicine Outpati ent Clinics 2019-12-30 2019-12-30 [facility] [id number] 08:49:00 08:49:00 [place] [employer] s - Drive [facility] Medicine l Medicine Outpati ent Clinics 2019-10-29 2019-10-29 [facility] [id number] [address] 14:42:00 14:42:00 [place] [employer] s - Drive [facility] Medicine l Medicine Outpati ent Clinics 2019-10-29 2019-10-29 [facility] [id number] 10:01:00 10:01:00 [place] [employer] s - Drive [facility] Medicine l Medicine Outpati ent Clinics 2019-10-08 2019-10-08 [facility] [id number] 16:40:00 16:40:00 [place] [employer] s - Drive [facility] Medicine l Medicine Outpati ent Clinics 2019-09-24 2019-09-24 [facility] [id number] 14:40:00 14:40:00 [place] [employer] s - Drive [facility] Medicine l Medicine Outpati ent Clinics 2019-09-23 2019-09-23 [facility] [id number] [facility] 16:28:00 16:28:00 [place] [employer] s - Drive [facility] Medicine l Medicine Outpati ent Clinics 2019-09-23 2019-09-23 [facility] [id number] 10:59:00 10:59:00 [place] [employer] s - Drive [facility] l Medicine Outpati ent Clinics 2019-07-23 2019-07-23 [facility] [id number] 14:47:00 14:47:[address] [place] [address] [place] [facility] - Drive [facility] Medicine l Medicine Outpati ent Clinics 2019-06-18 2019-06-18 [facility] [id number] [address] 10:22:00 10:22:00 [place] [address] Luke s - Drive [facility] Medicine l Medicine Outpati ent Clinics 2019-06-17 2019-06-17 [facility] [id number] 15:23:00 15:23:00 [place] [address] Luke s - Drive [facility] Medicine l Medicine Outpati ent Clinics 2019-06-15 2019-06-15 [facility] [id number] [address] 16:00:00 16:00:00 [place] [employer] [place] s - Drive [facility] Medicine Outpati ent Clinics 2018-12-22 2018-12-22 [facility] [id number] [facility] 14:00:00 14:00:00 [place] [employer] [place] s - Drive [facility] Medicine Outpati ent Clinics 2018-12-22 2018-12-22 [facility] [id number] [facility] 10:13:00 10:13:00 [place] [employer] [place] s - Drive [facility] Medicine l Medicine Outpati ent Clinics 2018-11-10 2018-11-10 [facility] [id number] [address] 14:30:00 14:30:00 [place] [employer] s - Drive [facility] Medicine Medicine Outpati ent Clinics 2018-10-30 2018-10-30 [facility] [id number] 14:00:00 14:00:00 [place] [employer] [place] [facility] - Drive [facility] Medicine Medicine Outpati ent Clinics 2018-10-27 2018-10-27 [facility] [id number] [facility] 15:59:00 15:59:00 [place] [address] Luke s - Drive [facility] Medicine l Medicine Outpati ent Clinics 2018-10-16 2018-10-16 [facility] [id number] 11:30:00 11:30:00 [place] [employer] [place] s - Drive [facility] Medicine l Medicine Outpati ent Clinics 2018-10-08 2018-10-08 [facility] [id number] [facility] 13:18:00 13:18:00 [place] [email or web address] s - [employer] [facility] Medicine Outpati ent Clinics 2018-09-04 2018-09-04 [facility] [id number] [facility] 14:30:00 14:30:00 t [employer] - [employer] [facility] Medicine Outpati ent Clinics 2018-07-10 2018-07-10 [facility] [id number] [facility] 08:02:00 08:02:00 t [employer] - [employer] [facility] Medicine Outpati ent Clinics 2018-06-04 2018-06-04 [facility] [id number] [facility] 14:15:00 14:15:00 t Tweet Category [facility] Medicine Outpati ent Clinics 2018-04-03 2018-04-03 [facility] [id number] [facility] 03:58:00 03:58:00 t [employer] [facility] Medicine Outpati ent Clinics 2018-02-27 2018-02-27 [facility] [id number] [facility] 14:00:00 14:00:00 t Tweet Category [facility] Medicine Outpati ent Clinics Results This patient has no known results.
[2020-12-18 03:27] LABS: Absolute Lymphocytes (CBC) 2.5 K/uL (0.7-4.9); Basophils % 0.3 % (0-1.3); Hematocrit 36.3 % (36.0-45.0); Lymphocytes % 32.2 % (15.3-44.8); MPV 7.9 fL (7.6-11.3); RBC Red Blood Cell Count 4.29 M/uL (3.86-4.86)
[2020-12-18] MEDS ORDERED: MORPHINE 4 MG/ML SYR ONE (03:39)
[2020-12-18] MEDS ORDERED: ONDANSETRON 4 MG/2 ML VIAL ONE (03:39)
[2020-12-18] MEDS ORDERED: FAMOTIDINE 20 MG/2 ML VIAL IV ONE (03:40)
[2020-12-18 03:45] LABS: Albumin 3.9 g/dL (3.4-5.0); Bilirubin Direct 0.3 mg/dL (0-0.2); Bilirubin Total 0.7 mg/dL (0.2-1.0); Potassium 4.6 mmol/L (3.5-5.1); Protein, Total 8.3 g/dL (6.4-8.2)
[2020-12-18 04:48] LABS: Urine Blood TRACE (NEG); Urine Glucose NEGATIVE (NEG); Urine Protein 3+ (NEG)
[2020-12-18] MEDS ORDERED: METOCLOPRAMIDE 10 MG/2mL INJ ONE (07:32)
[2020-12-18] MEDS ORDERED: NA CHLORIDE 0.9% 500 ML ONE (07:32)
--- NOTE | 2020-12-18 09:33 | EDPHYS ---
Physician Documentation [facility] Name: Teresa Baez Age: 80 yrs Sex: Female : 1940 Arrival Date: 12/18/2020 Time: 03:00 Bed 13 Private MD: ED Physician Gerardo Renner HPI: 12/18 03:38 This 80 yrs old Female presents to ER via Ambulatory with complaints of mh7 Abdominal Pain. 03:38 The patient presents with abdominal pain in the epigastric area. Onset: The mh7 symptoms/episode began/occurred this morning, at 02:00. The symptoms radiate to both flanks. 03:39 Associated signs and symptoms: Pertinent negatives: nausea, vomiting, and diarrhea, mh7 nausea and vomiting, anorexia, blood in stools, chest pain, constipation, diarrhea, dysuria, fever, headache, hematuria, nausea, palpitations, shortness of breath, vaginal discharge, vomiting, vomiting blood. The symptoms are described as sharp, vague, waxing/waning. Modifying factors: The symptoms are alleviated by nothing, the symptoms are aggravated by nothing. Severity of pain: At its worst the pain was moderate today, in the emergency department the pain is unchanged. Historical: - Allergies: 03:43 No Known Allergies; lp1 - PMHx: 03:43 Diabetes - NIDDM; Hypertension; CVA; lp1 - PSHx: 03:43 Hysterectomy; Cholecystectomy; lp1 - Immunization history:: Adult Immunizations up to date. - Social history:: Smoking status: Patient denies any tobacco usage or history of. ROS: 03:39 Constitutional: Negative for fever, chills, and weight loss, Eyes: Negative for injury, mh7 pain, redness, and discharge, ENT: Negative for injury, pain, and discharge, Neck: Negative for injury, pain, and swelling, Cardiovascular: Negative for chest pain, palpitations, and edema, Respiratory: Negative for shortness of breath, cough, wheezing, and pleuritic chest pain, : Negative for injury, bleeding, discharge, and swelling, MS/Extremity: Negative for injury and deformity, Skin: Negative for injury, rash, and discoloration, Neuro: Negative for headache, weakness, numbness, tingling, and seizure, Psych: Negative for depression, anxiety, suicide ideation, homicidal ideation, and hallucinations, Allergy/Immunology: Negative for hives, rash, and allergies, Endocrine: Negative for neck swelling, polydipsia, polyuria, polyphagia, and marked weight changes, Hematologic/Lymphatic: Negative for swollen nodes, abnormal bleeding, and unusual bruising. Exam: 03:39 Head/Face: Normocephalic, atraumatic. Eyes: Pupils equal round and reactive to light, mh7 extra-ocular motions intact. Lids and lashes normal. Conjunctiva and sclera are non-icteric and not injected. Cornea within normal limits. Periorbital areas with no swelling, redness, or edema. Neck: Trachea midline, no thyromegaly or masses palpated, and no cervical lymphadenopathy. Supple, full range of motion without nuchal rigidity, or vertebral point tenderness. No Meningismus. Chest/axilla: Normal chest wall appearance and motion. Nontender with no deformity. No lesions are appreciated. Cardiovascular: Regular rate and rhythm with a normal S1 and S2. No gallops, murmurs, or rubs. Normal PMI, no JVD. No pulse deficits. Respiratory: Lungs have equal breath sounds bilaterally, clear to auscultation and percussion. No rales, rhonchi or wheezes noted. No increased work of breathing, no retractions or nasal flaring. 03:39 Back: No spinal tenderness. No costovertebral tenderness. Full range of motion. Skin: Warm, dry with normal turgor. Normal color with no rashes, no lesions, and no evidence of cellulitis. MS/ Extremity: Pulses equal, no cyanosis. Neurovascular intact. Full, normal range of motion. Neuro: Awake and alert, GCS 15, oriented to person, place, time, and situation. Cranial nerves II-XII grossly intact. Motor strength 5/5 in all extremities. Sensory grossly intact. Cerebellar exam normal. Normal gait. Psych: Awake, alert, with orientation to person, place and time. Behavior, mood, and affect are within normal limits. 03:39 Constitutional: The patient appears in no acute distress, alert, awake, uncomfortable. 03:39 Abdomen/GI: Inspection: scar(s), are noted in the right upper quadrant, Bowel sounds: normal, in all quadrants, Palpation: moderate abdominal tenderness, in the epigastric area, mass, is not appreciated, rebound tenderness, is not appreciated, no appreciated organomegaly, Rectal exam: the exam is deferred, because of patient request, Indicators: McBurney's point is not tender, Marshall's sign is negative, Rovsing's sign is negative, Obturator sign is negative, Psoas sign is negative, Liver: no appreciated palpable abnormalities, Hernia: not appreciated. Vital Signs: 03:19 BP 208 / 69 LA; Pulse 69; Resp 18; Temp 97.8(O); Pulse Ox 100% on R/A; Weight 63.5 kg lp1 (R); Pain 10/10; 03:25 BP 204 / 67 RA; lp1 04:00 BP 193 / 74; Pulse 63; Resp 16; Pulse Ox 100% on 2 lpm NC; lp1 04:45 BP 181 / 63; Pulse 58; Resp 15; Pulse Ox 99% on R/A; lp1 06:30 BP 187 / 73; Pulse 58; Resp 17; Pulse Ox 95% on R/A; lp1 07:15 BP 178 / 70; Pulse 61; Resp 18; Pulse Ox 93% ; dm14 08:00 BP 161 / 76; Pulse 63; Resp 18; Pulse Ox 93% ; dm14 09:10 BP 181 / 70; Pulse 59; Resp 16; Pulse Ox 97% ; dm14 10:00 BP 176 / 68; Pulse 62; Resp 16; Pulse Ox 94% ; dm14 11:00 BP 177 / 63; Pulse 62; Resp 16; Pulse Ox 93% ; dm14 MDM: 08:54 Patient medically screened. quinton 09:25 Differential diagnosis: bowel obstruction, cholecystitis, Cholelithiasis, non-specific quinton abd pain, pancreatitis. Data reviewed: vital signs, nurses notes, lab test result(s), EKG, radiologic studies, CT scan, plain films, ultrasound. 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 Test interpretation: by ED physician or midlevel provider: ECG, plain radiologic studies. 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 12/18 03:17 Order name: Basic Metabolic Panel [facility] 12/18 03:17 Order name: CBC with Diff; Complete Time: 03:36 [facility] 12/18 03:17 Order name: Hepatic Function; Complete Time: 04:14 [facility] 12/18 03:17 Order name: Lipase; Complete Time: 04:14 [facility] 12/18 03:17 Order name: Basic Metabolic Panel; Complete Time: 04:14 [facility] 12/18 03:37 Order name: Troponin (emerg Dept Use Only); Complete Time: 04:14 [facility] 12/18 04:42 Order name: Urine Dipstick--Ancillary (enter results); Complete Time: 04:49 [facility] 12/18 06:02 Order name: Abdomen [facility] 12/18 07:16 Order name: US Pelvis Complete; Complete Time: 11:00 [facility] 12/18 08:56 Order name: Magnesium; Complete Time: 11:00 [facility] 12/18 08:56 Order name: NT PRO-BNP; Complete Time: 11:00 [facility] 12/18 08:56 Order name: PT-INR; Complete Time: 11:00 [facility] 12/18 08:56 Order name: XRAY Chest (1 view); Complete Time: 09:56 [facility] 12/18 03:17 Order name: IV Saline Lock; Complete Time: 03:39 [facility] 12/18 03:17 Order name: Labs collected and sent; Complete Time: 03:39 [facility] 12/18 03:17 Order name: Urine Dipstick-Ancillary (obtain specimen); Complete Time: 04:43 [facility] 12/18 03:17 Order name: EKG - Nurse/Tech; Complete Time: 03:39 [facility] 12/18 08:56 Order name: EKG; Complete Time: 08:57 [facility] 12/18 08:56 Order name: Cardiac monitoring; Complete Time: 09:45 [facility] 12/18 08:56 Order name: O2 Per Protocol; Complete Time: 09:45 [facility] 12/18 08:56 Order name: O2 Sat Monitoring; Complete Time: 09:45 [facility] Administered Medications: 03:25 Drug: morphine 4 mg Route: IVP; Site: right antecubital; lp1 04:00 Follow up: Response: Marked relief of symptoms lp1 03:25 Drug: Zofran (Ondansetron) 4 mg Route: IVP; Site: right antecubital; lp1 04:00 Follow up: Response: No adverse reaction lp1 03:35 Drug: Pepcid 20 mg Route: IVP; Site: right antecubital; lp1 04:00 Follow up: Response: No adverse reaction lp1 07:20 Drug: Reglan 10 mg Route: IVP; Site: right antecubital; dm14 07:45 Follow up: Response: No adverse reaction dm14 07:23 Drug: NS 0.9% 500 ml Route: IV; Rate: bolus; Site: right antecubital; dm14 08:29 Follow up: IV Status: Completed infusion; IV Intake: 500ml dm14 09:55 Drug: ProTONIX 40 mg Route: IVP; Site: right antecubital; dm14 11:42 Follow up: Response: No adverse reaction; Pain is decreased dm14 10:00 Drug: Cipro 200 mg Volume: 100 ml; Route: IVPB; Infused Over: 60 mins; Site: right dm14 antecubital; 11:42 Follow up: IV Status: Completed infusion; IV Intake: 100ml dm14 11:43 Follow up: Response: No adverse reaction dm14 10:00 Drug: Flagyl 500 mg Volume: 100 ml; Route: IVPB; Rate: 200 ml/hr; Infused Over: 30 dm14 mins; Site: right antecubital; 11:43 Follow up: IV Status: Completed infusion; IV Intake: 100ml dm14 11:43 Follow up: Response: No adverse reaction dm14 11:33 CANCELLED (order changed): Magnesium Sulfate 1 grams IVPB once over 30 mins dm14 11:33 Drug: Magnesium 400 mg Route: PO; dm14 11:44 Follow up: Response: No adverse reaction dm14 Disposition: 12/18/20 09:32 Discharged to Home. Impression: Abdominal tenderness, Gastritis, unspecified, Diverticular disease of intestine - severe, Unspecified kidney failure - chronic, Type 2 diabetes mellitus. - Condition is Stable. - Discharge Instructions: Abdominal Pain, Adult, Type 2 Diabetes Mellitus, Diagnosis, Adult, Gastritis, Adult, Gastritis, Adult, Unku-[id number], Abdominal Pain, Adult, Bujt-os-Pwez, Chronic Kidney Disease, Adult, Alau-zb-Gyth, Type 2 Diabetes Mellitus, Diagnosis, Adult, Vlvg-ow-Ksld. - Prescriptions for Cipro 250 mg Oral Tablet - take 2 tablet by ORAL route every 12 hours; 20 tablet. Flagyl 500 mg Oral Tablet - take 1 tablet by ORAL route every 12 hours for 7 days; 14 tablet. Protonix 40 mg Oral Tablet - take 1 tablet by ORAL route once daily; 30 tablet. Zofran 4 mg Oral Tablet - take 1 tablet by ORAL route every 12 hours As needed; 20 tablet. - Medication Reconciliation Form, Thank You Letter, Antibiotic Education, Prescription Opioid Use form. - Follow up: Private Physician; When: 2 - 3 days; Reason: Recheck today's complaints, Continuance of care, Re-evaluation by your physician. Follow up: Wendy Mckenzie; When: 2 - 3 days; Reason: Recheck today's complaints, Continuance of care, Re-evaluation by your physician. - Problem is new. - Symptoms have improved. Signatures: Dispatcher [employer] Gerardo Mejia MD MD cha Pena, Laura RN RN lp1 Andrade Snell MD MD mh7 Destiny Puentes RN RN dm14 Corrections: (The following items were deleted from the chart) 06:02 04:15 Abdomen Pelvis W [id number] ordered. [facility] EDNJ 11:33 11:01 Magnesium Sulfate 1 grams IVPB once over 30 mins ordered. quinton ramirez 11:45 09:32 12/18/2020 09:32 Discharged to Home. Impression: Abdominal tenderness; Gastritis, dm14 unspecified; Diverticular disease of intestine - severe; Unspecified kidney failure - chronic; Type 2 diabetes mellitus. Condition is Stable. Discharge Instructions: Abdominal Pain, Adult, Type 2 Diabetes Mellitus, Diagnosis, Adult, Gastritis, Adult, Gastritis, Adult, Kdoq-fl-Uoij, Abdominal Pain, Adult, Ipai-yr-Qwwa, Chronic Kidney Disease, Adult, Bdpn-kt-Damu, Type 2 Diabetes Mellitus, Diagnosis, Adult, Pand-mz-Itzd. Prescriptions for Cipro 250 mg Oral Tablet - take 2 tablet by ORAL route every 12 hours; 20 tablet, Flagyl 500 mg Oral Tablet - take 1 tablet by ORAL route every 12 hours for 7 days; 14 tablet, Protonix 40 mg Oral Tablet - take 1 tablet by ORAL route once daily; 30 tablet, Zofran 4 mg Oral Tablet - take 1 tablet by ORAL route every 12 hours As needed; 20 tablet. and Forms are Medication Reconciliation Form, Thank You Letter, Antibiotic Education, Prescription Opioid Use. Follow up: Private Physician; When: 2 - 3 days; Reason: Recheck today's complaints, Continuance of care, Re-evaluation by your physician. Follow up: Wendy Mckenzie; When: 2 - 3 days; Reason: Recheck today's complaints, Continuance of care, Re-evaluation by your physician. Problem is new. Symptoms have improved. quinton
--- NOTE | 2020-12-18 09:33 | ER ---
Nurse's Notes [facility] Name: Teresa Baez Age: 80 yrs Sex: Female : 1940 Arrival Date: 12/18/2020 Time: 03:00 Bed 13 Private MD: Diagnosis: Abdominal tenderness;Gastritis, unspecified;Diverticular disease of intestine-severe;Unspecified kidney failure-chronic;Type 2 diabetes mellitus Presentation: 12/18 03:19 Chief complaint: Patient states: Epigastric pain that began suddenly at 0200; Reports lp1 hx of similar pain, not as severe; Denies vomiting, diarrhea, fever. Coronavirus screen: Client denies travel out of the [place] in the last 14 days. At this time, the client does not indicate any symptoms associated with coronavirus-19. Ebola Screen: No symptoms or risks identified at this time. Initial Sepsis Screen: Does the patient meet any 2 criteria? No. Patient's initial sepsis screen is negative. Does the patient have a suspected source of infection? No. Patient's initial sepsis screen is negative. Risk Assessment: Do you want to hurt yourself or someone else? Patient reports no desire to harm self or others. Onset of symptoms was December 18, 2020 at 02:00. 03:19 Method Of Arrival: Ambulatory lp1 03:19 Acuity: JOSELIN 3 lp1 Triage Assessment: 03:20 General: Appears uncomfortable, Behavior is crying, restless. Pain: Complains of pain lp1 in epigastric area Pain currently is 10 out of 10 on a pain scale. Historical: - Allergies: 03:43 No Known Allergies; lp1 - PMHx: 03:43 Diabetes - NIDDM; Hypertension; CVA; lp1 - PSHx: 03:43 Hysterectomy; Cholecystectomy; lp1 - Immunization history:: Adult Immunizations up to date. - Social history:: Smoking status: Patient denies any tobacco usage or history of. Screenin:45 Abuse screen: Denies threats or abuse. Denies injuries from another. Nutritional lp1 screening: No deficits noted. Tuberculosis screening: No symptoms or risk factors identified. Fall Risk None identified. Assessment: 03:30 General: Appears uncomfortable, Behavior is anxious, restless. Pain: Complains of pain lp1 in epigastric area Pain currently is 10 out of 10 on a pain scale. Neuro: Level of Consciousness is awake, alert, obeys commands, Oriented to person, place, time, situation. Cardiovascular: Patient's skin is warm and dry. Respiratory: Airway is patent Respiratory effort is even, unlabored, Respiratory pattern is regular, Breath sounds are clear bilaterally. GI: Abdomen is non-distended, Bowel sounds present X 4 quads. Abdomen is tender to palpation X 4 quads. Reports upper abdominal pain, bloating, gaseousness. : No signs and/or symptoms were reported regarding the genitourinary system. EENT: No signs and/or symptoms were reported regarding the EENT system. Derm: Skin is intact, Skin is dry, Skin is normal. Musculoskeletal: No deficits noted. 03:42 Reassessment: Patient at 88% O2 on RA after medication administration; Place on 2L NC lp1 with relief, O2 at 98%. 04:15 Reassessment: Patient ambulated independently to bathroom. lp1 04:43 Reassessment: CT notified of patient completing oral contrast at this time. lp1 Reassessment: Patient reports slight pain present to epigastric area of abdomen. 06:20 Reassessment: Patient reports nausea on return from CT. lp1 07:20 Reassessment: Pt continues to moan with discomfort. Rubbing epigastric area. dm14 07:53 Reassessment: Pt asleep at this time. dm14 09:30 Reassessment: No changes from previously documented assessment. dm14 10:30 Reassessment: Pt feeling improved following Protonix. dm14 Vital Signs: 03:19 BP 208 / 69 LA; Pulse 69; Resp 18; Temp 97.8(O); Pulse Ox 100% on R/A; Weight 63.5 kg lp1 (R); Pain 10/10; 03:25 BP 204 / 67 RA; lp1 04:00 BP 193 / 74; Pulse 63; Resp 16; Pulse Ox 100% on 2 lpm NC; lp1 04:45 BP 181 / 63; Pulse 58; Resp 15; Pulse Ox 99% on R/A; lp1 06:30 BP 187 / 73; Pulse 58; Resp 17; Pulse Ox 95% on R/A; lp1 07:15 BP 178 / 70; Pulse 61; Resp 18; Pulse Ox 93% ; dm14 08:00 BP 161 / 76; Pulse 63; Resp 18; Pulse Ox 93% ; dm14 09:10 BP 181 / 70; Pulse 59; Resp 16; Pulse Ox 97% ; dm14 10:00 BP 176 / 68; Pulse 62; Resp 16; Pulse Ox 94% ; dm14 11:00 BP 177 / 63; Pulse 62; Resp 16; Pulse Ox 93% ; dm14 ED Course: 03:00 Patient arrived in ED. cl3 03:07 Andrade Snell MD is Attending Physician. mh7 03:15 Missed attempt(s): 20 gauge in right forearm. lp1 03:15 Initial lab(s) drawn, by me, sent to lab. Inserted saline lock: 22 gauge in right lp1 antecubital area, using aseptic technique. Blood collected. 03:19 Heide Matthew RN is Primary Nurse. lp1 03:20 Triage completed. lp1 03:46 Patient has correct armband on for positive identification. Bed in low position. Call lp1 light in reach. ice cutter on. Pulse ox on. NIBP on. 03:46 Arm band placed on. lp1 06:35 Abdomen In Process Unspecified. EDMS 07:15 Report given to MOHINI Dixon. lp1 08:54 Attending Physician role handed off by Andrade Snell MD quinton 08:54 Gerardo Renner MD is Attending Physician. quinton 09:30 XRAY Chest (1 view) In Process Unspecified. EDMS 09:32 Wendy Mckenzie MD is Referral Physician. quinton 09:36 US Pelvis Complete In Process Unspecified. EDMS 11:41 No provider procedures requiring assistance completed. IV discontinued, intact, dm14 bleeding controlled, No redness/swelling at site. Pressure dressing applied. Administered Medications: 03:25 Drug: morphine 4 mg Route: IVP; Site: right antecubital; lp1 04:00 Follow up: Response: Marked relief of symptoms lp1 03:25 Drug: Zofran (Ondansetron) 4 mg Route: IVP; Site: right antecubital; lp1 04:00 Follow up: Response: No adverse reaction lp1 03:35 Drug: Pepcid 20 mg Route: IVP; Site: right antecubital; lp1 04:00 Follow up: Response: No adverse reaction lp1 07:20 Drug: Reglan 10 mg Route: IVP; Site: right antecubital; dm14 07:45 Follow up: Response: No adverse reaction dm14 07:23 Drug: NS 0.9% 500 ml Route: IV; Rate: bolus; Site: right antecubital; dm14 08:29 Follow up: IV Status: Completed infusion; IV Intake: 500ml dm14 09:55 Drug: ProTONIX 40 mg Route: IVP; Site: right antecubital; dm14 11:42 Follow up: Response: No adverse reaction; Pain is decreased dm14 10:00 Drug: Cipro 200 mg Volume: 100 ml; Route: IVPB; Infused Over: 60 mins; Site: right dm14 antecubital; 11:42 Follow up: IV Status: Completed infusion; IV Intake: 100ml dm14 11:43 Follow up: Response: No adverse reaction dm14 10:00 Drug: Flagyl 500 mg Volume: 100 ml; Route: IVPB; Rate: 200 ml/hr; Infused Over: 30 dm14 mins; Site: right antecubital; 11:43 Follow up: IV Status: Completed infusion; IV Intake: 100ml dm14 11:43 Follow up: Response: No adverse reaction dm14 11:33 CANCELLED (order changed): Magnesium Sulfate 1 grams IVPB once over 30 mins dm14 11:33 Drug: Magnesium 400 mg Route: PO; dm14 11:44 Follow up: Response: No adverse reaction dm14 Intake: 08:29 IV: 500ml; Total: 500ml. dm14 11:42 IV: 100ml; Total: 600ml. dm14 11:43 IV: 100ml; Total: 700ml. dm14 Outcome: 09:32 Discharge ordered by . quinton 11:41 Discharged to home ambulatory. dm14 11:41 Condition: stable 11:41 Discharge instructions given to patient, Instructed on discharge instructions, follow up and referral plans. medication usage, Demonstrated understanding of instructions, follow-up care, medications, Prescriptions given X 4. 11:45 Patient left the ED. dm14 Signatures: Dispatcher [employer] EDGerardo Carmichael MD MD cha Pena, Laura, RN RN lp1 Kiet Alvarado cl3 Andrade Snell MD MD 7 Destiny Puentes RN RN dm14 Corrections: (The following items were deleted from the chart) 03:44 03:19 BP 208 / 69; Pulse 69bpm; Resp 18bpm; Pulse Ox 100% RA; Temp 97.8F Oral; 63.5 kg lp1 Reported; Pain 07/30; lp1
--- NOTE | 2020-12-18 09:38 | RAD REPORT ---
EXAM DESCRIPTION: Son Single View12/18/2020 9:30 am CLINICAL HISTORY: Abdominal pain COMPARISON: 2018 FINDINGS: The lungs appear clear of acute infiltrate. The heart is borderline enlarged IMPRESSION: No acute abnormalities displayed
--- NOTE | 2020-12-18 09:58 | RAD REPORT ---
EXAM DESCRIPTION: US - Pelvis Complete - 12/18/2020 9:36 am CLINICAL HISTORY: Pelvic pain COMPARISON: CT December 18, 2020 FINDINGS: Hysterectomy 5 centimeter right ovarian cyst. Right ovary contains blood flow. 3 centimeter left ovarian cyst. Left ovary contains blood flow. The right and left adnexa are unremarkable No significant free fluid is seen. IMPRESSION: Bilateral ovarian cysts likely benign. Follow-up ultrasound 1 year recommended
[2020-12-18 10:02] LABS: Protime INR 0.93
[2020-12-18] MEDS ORDERED: PANTOPRAZOLE 40 MG INJ ONE (10:10)
[2020-12-18] MEDS ORDERED: METRONIDAZOLE 500mg IVPB 500 MG/100 ML BAG IV ONE (10:11)
[2020-12-18] MEDS ORDERED: Ciprofloxacin 200mg IV 200 MG/100 ML IV.SOLN. IV ONE (10:11)
[2020-12-18 10:16] LABS: Magnesium 1.6 mg/dL (1.8-2.4)
--- NOTE | 2020-12-18 11:09 | RAD REPORT ---
EXAM DESCRIPTION: CT - Abdomen Pelvis Wo Contrast - 12/18/2020 7:29 am COMPARISON: None. CLINICAL HISTORY: [facility] MAIN ABD PAIN TECHNIQUE: CT of the abdomen and pelvis was acquired without IV contrast material. Coronal and sagit kory reconstructions were obtained. Automated exposure control was utilized on this examination as a dose lowering technique. FINDINGS: Lung bases: Clear. *Evaluation of solid organs is limited due to lack of IV contrast. Liver: Normal. Gallbladder and biliary: Cholecystectomy. Unremarkable biliary tree. Pancreas: Normal. Spleen: Normal. Adrenal glands: Normal adrenal glands. Kidneys: Small bilateral hemorrhagic or proteinaceous renal cysts are noted. Stomach and Small Bowel: Contrast is noted in the stomach and small bowel. The stomach is normal in t he small bowel is normal in caliber. Urinary bladder: Normal. Uterus and Adnexa: Hysterectomy. 5.2 cm right ovarian cyst and 2.9 cm left ovarian cyst. Colon and Appendix: Severe sigmoid diverticulosis. No evidence of appendicitis. Retroperitoneum and lymph nodes: Normal. Vascular: Severe multivessel calcified atherosclerosis. Peritoneal cavity: No ascites or free air. Musculoskeletal and soft tissues: Soft tissues are unremarkable. No aggressive bone lesions. No com pression fracture. Lumbar spondylosis is present. IMPRESSION: 1. No acute intra-abdominal abnormality. 2. Severe sigmoid diverticulosis. 3. Severe atherosclerosis. 4. 5.2 cm right ovarian cyst and 2.9 cm left ovarian cyst. Recommend prompt follow-up with pelvic US. Electronically signed by: Milton Horta MD 12/18/2020 6:45 AM OUTPATIENT PHYSICAL THERAPIST Due to temporary technical issues with the PACS/Fluency reporting system, reports are being signed by the in house radiologists without review as a courtesy to insure prompt reporting. The interpreting radiologist is fully responsible for the content of the report.
[2020-12-18] MEDS ORDERED: MAGNESIUM OXIDE 400 MG TAB ONE (11:47)
[2020-12-18 11:57] VITALS: TEMP 97.8
[2020-12-18 12:08] VITALS: BP 177/63; O2SAT 93
--- NOTE | 2020-12-19 17:12 | EKG ---
Test Date: 2020-12-18 Test Time: 03:31:26 Tag Meter Operator: PINKY MEASUREMENT RESULTS: Intervals: Rate: 58 FL: 170 QRSD: 80 QT: 442 QTc: 433 [place]: P: 73 FL: 170 QRS: 56 T: 91 INTERPRETIVE STATEMENTS: Sinus bradycardia with occasional premature ventricular complexes Otherwise normal ECG Compared to ECG 10/06/2018 10:44:09 Ventricular premature complex(es) now present T-wave abnormality no longer present Electronically Signed On 12-19-20 17:06:36 [employer]OD MIXER [employer]SEM[employer]ER by Venkata Wylie
== END 2020-12-18 11:45 | disposition home or self-care (01) ==
LOC: ER 02:58
DX: K29.70 Gastritis, unspecified, without bleeding (principal); K57.32 Diverticulitis of large intestine without perforation or abscess without bleeding; E11.22 Type 2 diabetes mellitus with diabetic chronic kidney disease; I12.9 Hypertensive chronic kidney disease with stage 1 through stage 4 chronic kidney disease, or unspecified chronic kidney disease; N18.9 Chronic kidney disease, unspecified
CPT/HCPCS: 96365; 96361; 96368; 93005; 85025; 80048; 36415; 83735; 85610; 80076; 81003; 84484; 83690; 83880; 74176; 71045; 76856; 96375; 99284; 96366; J2765; C9113; J0744; J7040; J2405